=== PATIENT | male | born 1970 | race Caucasian/White ===

== ENCOUNTER 2016-03-12 20:09 | Emergency (ER) | payer BC ==
[2016-03-12] MEDS ORDERED: NS 0.9% 1000 ML* 1,000 ML IV ONE (23:08)
[2016-03-12] MEDS ORDERED: Ondansetron INJ* 2 MG/ML VIAL IV ONE (23:08)
[2016-03-12] MEDS ORDERED: Ketorolac INJ* 30 MG/ML 1 ML VIAL IV PUSH ONE (23:57)
--- NOTE | 2016-03-13 00:07 | ED ---
Boy Calle Karl, scribed for Alec Jay MD on 03/12/16 at 2302 . GI/ HPI - HPI Summary HPI Summary: Pt is a 45 y/o male that presents to the ED c/o nausea, vomiting, and diarrhea that began at 08:00 this morning and have been constant since. Pt also reported a migraine SANTIAGO and cramping abd pain at a 9/10. Pt stated that his last episode of vomiting/diarrhea was at approx 21:30, he has not urinated all day, and that he is still suffering form nausea while in the ED. - History of Current Complaint Chief Complaint: EDNauseaVomitDiarrh Time Seen by Provider: 03/12/16 22:49 Stated Complaint: ABD PAIN/VOMITING/DIARRHEA Hx Obtained From: Patient Onset/Duration: Started Hours Ago, Atraumatic, Still Present Timing: Constant Severity: Moderate Current Severity: Moderate Pain Intensity: 9 - 0-10 numeric scale Location of Pain: Epigastric Pain Characteristics: Cramping Associated Signs and Symptoms: Positive: Nausea, Vomiting, Diarrhea, Other: - migraine Aggravating Factor(s): Nothing Alleviating Factor(s): Nothing - Allergy/Home Medications Allergies/Adverse Reactions: Allergies Allergy/AdvReac Type Severity Reaction Status Date / Time No Known Allergies Allergy Verified 09/22/14 14:50 PMH/Surg Hx/FS Hx/Imm Hx Infectious Disease History: No Infectious Disease History: Denies: Traveled Outside the [place] in Last 30 Days - Family History Known Family History: Negative: Cardiac Disease, Hypertension, Diabetes - Social History Alcohol Use: None Substance Use Type: Reports: None Smoking Status (MU): Former Smoker Review of Systems Constitutional: Negative Eyes: Negative ENT: Negative Cardiovascular: Negative Respiratory: Negative Positive: Abdominal Pain, Vomiting, Diarrhea, Nausea Genitourinary: Negative Musculoskeletal: Negative Skin: Negative Positive: Headache - migraine Psychological: Normal All Other Systems Reviewed And Are Negative: Yes Physical Exam Triage Information Reviewed: Yes Vital Signs On Initial Exam: Initial Vitals Temp Pulse Resp BP Pulse Ox 95.8 F 122 18 105/83 97 03/12/16 20:22 03/12/16 20:22 03/12/16 20:22 03/12/16 20:22 03/12/16 20:22 Vital Signs Reviewed: Yes Appearance: Positive: Well-Appearing, Pain Distress - mild discomfort Skin: Positive: Warm Head/Face: Positive: Normal Head/Face Inspection Eyes: Positive: EOMI, NICK ENT: Positive: Hearing grossly normal Neck: Positive: Supple Respiratory/Lung Sounds: Positive: Clear to Auscultation, Breath Sounds Present Cardiovascular: Positive: Normal. Negative: Murmur Abdomen Description: Positive: Nontender, No Organomegaly, Soft Bowel Sounds: Positive: Present Musculoskeletal: Positive: Strength/ROM Intact Neurological: Positive: Sensory/Motor Intact, Alert, Oriented to Person Place, Time, Normal Gait Psychiatric: Positive: Normal Diagnostics - Vital Signs Vital Signs Temp Pulse Resp BP Pulse Ox 03/12/16 20:22 95.8 F 122 18 105/83 97 - Laboratory Result Diagrams: 03/12/16 23:50 03/12/16 23:50 Lab Statement: Any lab studies that have been ordered have been reviewed, and results considered in the medical decision making process. Re-Evaluation - Re-Evaluation First Eval Change: Improved GIGU Course/Dx - Diagnoses Provider Diagnoses: Migraine, Vomiting Discharge - Discharge Plan Condition: Stable Disposition: HOME Patient Education Materials: Migraine Headache (ED), Acute Nausea and Vomiting (ED) Referrals: Sheri Torres MD [Primary Care Provider] - Additional Instructions: Please follow up with your primary care provider. Return to the emergency department for changing or worsening symptoms. The documentation as recorded by the Boy paul Karl accurately reflects the service I personally performed and the decisions made by Pierre pena David, MD.
[2016-03-13 00:29] LABS: ALT 15 U/L (7-52); AST 13 U/L (13-39); Albumin 4.8 g/dL (3.2-5.2); Alkaline Phosphatase 89 U/L (34-104); Anion Gap 12 mmol/L (2-11); BUN/Creatinine Ratio 18.7 (8-20); Blood Urea Nitrogen 23 mg/dL (6-24); CO2 Carbon Dioxide 20 mmol/L (22-32); Calcium 10.1 mg/dL (8.6-10.3); Chloride 104 mmol/L (101-111); EGFR African American 82.6 (>60); EGFR Non-African American 64.2 (>60); Globulin 3.5 g/dL (2-4); Glucose 134 mg/dL (70-100); Lipase < 10 U/L (11.0-82.0); Magnesium 1.8 mg/dL (1.9-2.7); Sodium 136 mmol/L (133-145); Total Protein 8.3 g/dL (6.4-8.9)
[2016-03-13 00:33] LABS: Hematocrit 52 % (42-52); Hemoglobin 18.2 g/dl (14.0-18.0); Mean Corpuscular HGB Conc 35 g/dl (31-36); Mean Corpuscular Hemoglobin 32 pg (27-31); Mean Corpuscular Volume 91 fL (80-94); Mean Platelet Volume 9 um3 (7.4-10.4); Red Blood Count 5.68 10^6/ul (4.0-5.4); Red Cell Distribution Width 13 % (10.5-15); White Blood Count 11.8 10^3/ul (3.5-10.8)
[2016-03-13 00:35] LABS: Add Diff/Slide Review? Slide Review Added; Comments Flag Yes
[2016-03-13] MEDS ORDERED: NS 0.9% 1000 ML* 1,000 ML IV ONE (00:59)
[2016-03-13] MEDS ORDERED: Morphine INJ* 4 MG/ML 1 ML CARPUJECT IV ONE (01:26)
[2016-03-13] MEDS ORDERED: diPHENhydraMINE IV* 50 MG/ML 1 ml VIAL (BENADRYL) IV ONE (02:41)
[2016-03-13] MEDS ORDERED: Metoclopramide IV* 5 MG/ML 2 ML VIAL IV ONE (02:50)
[2016-03-13 04:18] VITALS: BP 114/61
== END 2016-03-13 04:25 | disposition home or self-care (01) ==
LOC: ED 20:09
DX: G43.909 Migraine, unspecified, not intractable, without status migrainosus (principal); R11.2 Nausea with vomiting, unspecified; R19.7 Diarrhea, unspecified; R51 Headache
CPT/HCPCS: 36415; 80053; 83690; 83735; 85025; 96374; 96375; 99284; J1200; J1885; J2270; J2405; J2765

== ENCOUNTER 2016-09-22 08:38 | Day surgery (SDC) | payer BC ==
--- NOTE | 2016-09-16 14:22 | HP ---
PREOPERATIVE HISTORY AND PHYSICAL: DATE OF SURGERY/ADMISSION: 09/22/16 [facility] DATE OF OFFICE VISIT/ENCOUNTER: 09/16/16 ATTENDING SURGEON: Elda Ratliff MD * (DICTATED BY LINDSEY NAVARRO) PROCEDURE: Right wrist ganglion cyst excision. CHIEF COMPLAINT: Right wrist recurrent mass. HISTORY OF PRESENT ILLNESS: This is a 46-year-old male, who complains of a recurrent lump on the volar radial aspect of his right wrist. He also complains of some tingling and numbness symptoms in the hand when he drives primarily affecting his thumb. 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 The mass itself is not painful, but he does have trouble when he tries to turn wrenches or does any lifting. He feels some weakness in the hand at times secondary to the tingling sensations. He had this mass removed in 2003 and the associated tingling at that time resolved with the removal of the mass. Unfortunately, the mass recurred 3 to 4 years ago as did the tingling. He would like to have the mass removed again. He has consented to proceed with a right wrist excision ganglion cyst. PAST MEDICAL HISTORY: 1. GERD, Toribio's esophagus. 2. History of hemorrhoids. 3. Depression. 4. Hypercholesterolemia. PAST SURGICAL HISTORY: Right wrist ganglion cyst excision in 2003 or 2004. CURRENT MEDICATIONS: 1. Acyclovir 400 mg 1 tab b.i.d. p.r.n. 2. Bupropion HCL ER 150 mg daily. 3. Citalopram hydrobromide 40 mg daily. 4. Omeprazole 40 mg daily. 5. Simvastatin 40 mg daily. 6. Tamsulosin HCL 0.4 mg daily. ALLERGIES: FLU SHOT causes trouble breathing. FAMILY MEDICAL HISTORY: Heart disease, stroke, and cancer. 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 He is a former smoker, he quit in 2012. Prior to that, he smoked half a pack per day. He is a [id number] smoker. He denies recreational drug use. He denies alcohol use. REVIEW OF SYSTEMS: General: Negative for fevers, chills, or night sweats. No known anesthesia problems in the past. HEENT: Negative for headache, lightheadedness, or syncopal episodes. Integumentary: Negative for abrasions, lesions, or open wounds. Cardiothoracic: Negative for hypertension, chest pain , palpitations, or edema. Pulmonary: Negative for shortness of breath with exertion, chronic cough, COPD. GI: Positive for GERD. Negative for nausea, vomiting, diarrhea, or constipation. : Negative for nocturia, urinary frequency, urgency, history of UTIs, or kidney problems. Musculoskeletal: Positive for current complaint. Negative for chronic or intermittent back pain or history of fractures. Neurological: Positive for numbness in right thumb and positive for depression. Negative for seizure, stroke, or epilepsy. Endocrine: Negative for diabetes or thyroid issues. Hematologic: Negative for easy bruising, excessive bleeding, or history of DVT. Infectious Disease: Negative for history of MRSA, hepatitis C, or HIV. PHYSICAL EXAMINATION GENERAL: Well-developed, well-nourished 46-year-old male in no acute distress. VITAL SIGNS: Height 5 feet 11 inches, weight 246 pounds, pulse rate 68, blood pressure 130/82. HEENT: Normocephalic, atraumatic. Pupils are equal, round, and reactive to light and accommodation. Extraocular movements are intact. NECK: Supple. No palpable lymph nodes. Throat is clear. PULMONARY: Lungs are clear to auscultation bilaterally. No wheezes, rales, or rhonchi. CARDIOVASCULAR: Regular rate and rhythm. S1, S2. No murmurs, rubs, or gallops. No edema. ABDOMEN: Positive bowel sounds, soft, nontender. MUSCULOSKELETAL: On exam of the right wrist, there is a 1 cm in diameter mass on the volar radial aspect of the right wrist. He has a positive Tinel sign over the mass, which causes tingling up into his thumb. He has a negative Tinel sign at the median nerve of the wrist and negative Phalen's test. There is no thenar wasting nor weakness of thumb abduction. He has full motion in his fingers and good motion in the wrist as well. NEUROLOGICAL: Alert and oriented x3. Cranial nerves II through XII are intact. Sensation is intact to light touch. IMAGING STUDIES: X-ray AP, lateral, and oblique of the right wrist appear normal. IMPRESSION: Recurrent ganglion cyst on the right wrist. PLAN: The patient is scheduled to undergo a right wrist excision ganglion cyst with Dr. Ratliff on 09/22/16. He will return to the office in 10 to 14 days postop for followup and suture removal. A prescription for Ultracet was e- scribed to the patient's pharmacy for postoperative pain management. LINDSEY NAVARRO [id number]/[facility] #: [id number] SHANICE
[~2016-09-22 08:38] MED LIST: Buffered Lidocaine 0.9% SYRIN* 5 ML/SYR SYRINGE INTRADERM ONE
[2016-09-22] MEDS ORDERED: Lidocaine 1% INJ* 10 MG/ML 30 ML SDV ONE (10:17)
[2016-09-22] MEDS ORDERED: fentaNYL* 50 MCG/ML 2 ML VIAL (100 MCG VIAL) ONE (10:27)
[2016-09-22] MEDS ORDERED: Midazolam* 1 MG/ML 2 ML VIAL (2 MG) ONE (10:27)
[2016-09-22] MEDS ORDERED: Lidocaine 2% PF * 5 ML VIAL ONE (11:00)
[2016-09-22] MEDS ORDERED: Propofol* 10 MG/ML 20 ML BTL IV PUSH ONE (11:00)
[2016-09-22 11:08] VITALS: BP 122/70
--- NOTE | 2016-09-22 18:27 | OP ---
DATE OF OPERATION: 09/22/16 [facility] DATE OF : 74 SURGEON: Elda Ratliff MD POLICE [employer]ION ATTENDANT: LINDSEY Mariscal ANESTHESIOLOGIST: Inocencio Hartman DO ANESTHESIA: Local MAC. PRE-OP DIAGNOSIS: Right recurrent wrist ganglion. POST-OP DIAGNOSIS: Right recurrent wrist ganglion. OPERATIVE PROCEDURE: Removal recurrent ganglion of the right wrist. INDICATIONS: Rio is a 46-year-old male, who had a ganglion cyst excised from his right wrist several years ago. It has recurred and it is causing him symptoms in his thumb, he presents for removal. ESTIMATED BLOOD LOSS: Zero. TOURNIQUET TIME: About 10 minutes. DESCRIPTION OF PROCEDURE: The patient was brought to the operating room and was given a sedation anesthetic and local infiltration of 10 cc of 1% plain lidocaine. The skin of his right hand and forearm was prepped and draped in the usual sterile fashion. The hand and forearm were exsanguinated and the tourniquet elevated to 250 mmHg. A chevron incision was made centered over the mass dissected through the subcutaneous tissue. The mass was draped with the radial artery and this was carefully dissected off, and the mass appeared to emanate from the first dorsal compartment. This was removed in its entirety and sent for pathology. The wound was irrigated and the skin edges were reapproximated with 4-0 nylon sutures. The wound was dressed with Xeroform , 4x4, Webril, and an Alex wrap. The patient tolerated the procedure well, was brought to the recovery room in good condition. [id number]/[facility] #: [id number] [facility]
--- NOTE | 2016-09-25 14:23 | OP ---
CC: Dr. Ratliff OPERATIVE REPORT: ADDENDUM: DATE OF OPERATION: 09/22/16 A Chevron incision was made centered over the mass and we dissected through the subcutaneous tissue. [id number]/[facility] #: [id number]
== END 2016-09-22 11:31 | disposition home or self-care (01) ==
LOC: OREAST 08:38
PROVIDERS: ATTEND Orthopaedic Surgery
DX: M67.431 Ganglion, right wrist (principal); Z87.891 Personal history of nicotine dependence; Z68.33 Body mass index [BMI] 33.0-33.9, adult
CPT/HCPCS: 88304; J2001; J2250; J2704; J3010